=== PATIENT | male | born 1965 | race Caucasian/White ===

== ENCOUNTER → 2018-09-22 | Outpatient (CLI) | payer OTHER ==
[~2018-09-22] MED LIST: Amoxicillin500 MG PO; BENADRYL25 MG PO; IBUP800 PO; KETO15TC TOP; LORA10 PO; NAPR220 PO; PRAV20 PO; Peridex480 ML SS; Vistaril25 MG PO
== END | disposition home or self-care (01) ==
LOC: LAB SHORT 07:30 → PLD 07:30
DX: L57.0 Actinic keratosis (principal)
CPT/HCPCS: 88305